=== PATIENT | male | born 1980 | race Hispanic/Latino ===

== ENCOUNTER → 2019-01-18 | Outpatient (REF) | payer SELFPAY | LOC: M LAB REF 19:20 | PROVIDERS: ATTEND Physician Assistant Medical | DX: M54.5 Low back pain (principal) ==

== ENCOUNTER 2022-08-12 13:37 | Emergency (ER) | payer OTHER, SELFPAY ==
[~2022-08-12] VITALS: Ht 162.6 cm; Wt 54.5 kg
[2022-08-12 13:38] VITALS: BP 150/70
[2022-08-12] MEDS ORDERED: ACETAMINOPHEN 500 MG TAB PO ONE (18:20)
[2022-08-12] MEDS ORDERED: IBUP80TA PO (18:27)
== END 2022-08-12 18:48 | disposition home or self-care (01) ==
LOC: M ED 13:37
DX: S63.501A Unspecified sprain of right wrist, initial encounter (principal); X50.0XXA Overexertion from strenuous movement or load, initial encounter; Y99.0 Civilian activity done for income or pay